=== PATIENT | female | born 1960 | race Caucasian/White ===

== ENCOUNTER 2024-09-05 00:01 | Day surgery (SDC) | payer OTHER, SELFPAY ==
[2024-08-27 14:47] VITALS: BMI 27.9
--- NOTE | 2024-08-27 14:48 | PC.NURSE ---
Report to the Outpatient Waiting Room, entrance under the green pavilion located off [facility], at time _0600_ on date _[id number]_. Planned Procedure Time: _0730_.? Time changes happen often and if your time is changed the preop area will call you the afternoon before. - You and your visitor will be asked to self-screen and do not enter if you have any COVID symptoms. Please call surgeon if you need to reschedule. - A mask is optional within the hospital at this time. Patients may have clear liquids (water, carbonated beverages, clear teas, apple juice) until 3 hours prior to surgery with a maximum of 20 ounces. - No food from midnight until time of surgery and no smoking, or chewing tobacco (or any form of nicotine). No chewing gum, candy or mints. Take only the following medications with a SIP of water on the morning of surgery: ___None____ DO NOT STOP ANY OF YOUR OTHER PRESCRIPTION MEDICATIONS PRIOR TO SURGERY EXCEPT THE FOLLOWING Hold all vitamins and supplements for 3 days per anesthesiologist. Medications to discontinue per physician ___None Date to take last dose Please no make-up, nail maltese, hairspray, perfume, deodorant, or body powder the day of surgery.? No jewelry (including any body piercings) or valuables the day of surgery, leave them at home.? Please take a shower or bath the night before, or the morning of, surgery with an antibacterial soap.? Wear comfortable, loose fitting clothing.? - Jewelry must be removed prior to entering the operating room.? Rings and piercings that are not removed may be cut off. - The hospital will not accept responsibility for valuables.? - Please leave all valuables, including medications, at home the day of surgery. If you are going home after surgery, a licensed short haul driver must drive you home.? - NO public transportation without another adult if you receive anesthesia. - We recommend that an adult stay with you for 24 hours following discharge. - We also recommend that you do not drive, make important decision, drink alcoholic beverages, or take any drugs that were not prescribed by your health care provider for at least 24 hours after your discharge time. Follow any additional instructions given to you from your surgeon. Telephone instructions given to __Shalonda___and asked if any additional questions and then verbalized understanding. Patient advised to call surgeon office or pre surgery nurse liaison [phone] if any additional questions.
--- NOTE | 2024-08-30 17:26 | PM.IMHP ---
H&P: HPI History of Present Illness Date/Time: 08/30/24 17:26 Chief Complaint: UUI Narrative: chronic urge incontinence. Successful trial of SNS Review of Systems Review of Systems: All systems reviewed & are unremarkable except as noted in HPI and below PMFSH Social History Social History Smoking status: Never smoker Alcohol intake: current Drinks per week: 3 Living arrangements: with family Spiritual care concerns: No Meds Home Medications and Allergies Home Medications ?Medication ?Instructions ?Recorded ?Confirmed ?Type estradiol 0.05 mg/24 hr weekly 1 patch topical WEEKLY 08/27/24 08/27/24 History transdermal patch vibegron 75 mg tablet (Gemtesa) 75 mg PO DAILY 08/27/24 08/27/24 History Allergies Allergy/AdvReac Type Severity Reaction Status Date / Time adhesive tape Allergy Mild Rash Verified 08/27/24 14:37 Penicillins Allergy Unknown Unknown Verified 08/27/24 14:36 Exam Narrative: NAD A+O x3 normal breathing Assessment and Plan Assessment and plan (1) Urge incontinence: Code(s): N39.41 - Urge incontinence Status: Acute Assessment and Plan: InterStim implant
--- NOTE | ~2024-09-05 | XR_ITS ---
XR fluoroscopy no charge Indication: Transsacral neurostimulator implant TECHNIQUE: Fluoroscopy used during Transsacral neurostimulator implant performed by [Yohan segundo MD] on 09/05/2024. 31 seconds of fluoroscopy with 2 fluoroscopic images captured. FINDINGS: Correlate with procedure note. IMPRESSION: Fluoroscopy used during Transsacral neurostimulator implant. Reviewed, dictated and finalized at location B. 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
--- OUTSIDE RECORDS SUMMARY | 2024-09-05 00:05 | XMS_ITS | Encounter Summary ---
Author Organization [facility] Address [address] [place] [address] Care Team Providers Care General Car Yard Supervisor Name Role Phone Unavailable Primary Care Provider Unavailabl e Encounter Details Date Type Department Care Team (Late st Contact Info) Description 05/25/2020 Lab Requisition [facility] DermPath Lab [address] [place] [phone] Galina Nicole MD [address] [facility] [address] [place] [address] Social History Tobacco Use Types Packs/Day Years Used Date Smoking Tobacco: Never Assessed Sex and Gender Information Value Date Recorded Sex Assigned at Not on file Gender Identity Not on file Sexual Orientation Not on file documented as of this encounter Plan of Treatment Not on file documented as of this encounter Procedures Procedure Name Priority Date/Time Associated Diagnosis Comments DERMATOPATHOLOGY Routine 05/24/2020 12:0 0 AM BLADE BENDER FURNACE TENDER documented in this encounter Results * DERMATOPATHOLOGY (05/24/2020 12:00 AM BLADE BENDER FURNACE TENDER) Case Report Dermatopathology Report Case: [id number] Authorizing Provider: Galina Nicole MD Collected: 05/24/2020 12:00 AM Ordering Location: [facility] DermPath Lab Received: 05/25/2020 10:17 AM Pathologist: Mesha Morales MD Specimen: Skin, right thigh 0 12:34 PM BLADE BENDER FURNACE TENDER DERMATOPATHOLOGY LABORATORY Final Diagnosis Specimen A. SKIN, right thigh: BASAL CELL CARCINOMA, SUPERFICIAL MULTIFOCAL (C44.712) 0 12:34 PM BLADE BENDER FURNACE TENDER DERMATOPATHOLOGY LABORATORY Clinical History [place] brown papule R/O ISK, BCC, MM. 0 12:34 PM BLADE BENDER FURNACE TENDER DERMATOPATHOLOGY LABORATORY Gross Description Specimen A: Received is one formalin filled container labeled with the patient's name and designated right thigh. The specimen consists of a shave measuring [id number]. Jar 0. 0 12:34 PM [facility] DERMATOPATHOLOGY LABORATORY Microscopic Description Specimen A. SKIN, right thigh: Attached to the undersurface of the epidermis, there are small aggregates of basaloid cells with a high nuclear to cytoplasmic ratio and peripheral palisading. 0 12:34 PM [facility] DERMATOPATHOLOGY LABORATORY Disclaimer An external and internal positive and negative controls are appropriate for the histochemical, immunohistochemical and immunofluorescence stain(s) in this case (if any), except where stated explicitly. The performance characteristics of the stain(s) cited in this report were developed and its performance characteristic determined by the Dermatopathology Laboratory at [facility], directed by Dr. Myriam Rodriguez. These tests need not be, and therefore are not, approved by the [place] Food and Drug Administration. The tests are used for clinical purposes. Billing Codes Specimen Charges Stain Charges 00572 1 0 12:34 PM [facility] DERMATOPATHOLOGY LABORATORY Embedded Images 0 12:34 PM [facility] DERMATOPATHOLOGY LABORATORY Pathology/Cytolog y TISSUE SPECIMEN FROM SKIN / Unknown 05/24/2020 05/25/2020 10:17 AM BLADE BENDER FURNACE TENDER Galina Nicole MD LAB - PATHOLOGY/CYTO LOGY ORDERABLES DERMATOPATHOLOGY LABORATORY [facility] - Department of Dermatology [address], [address] [phone] documented in this encounter Visit Diagnoses Not on filedocumented in this encounter
--- OUTSIDE RECORDS SUMMARY | 2024-09-05 00:05 | XMS_ITS | Clinical Summary ---
Author Organization [facility] Address [address] [place] [address] Phone Care Team Providers Care Psychiatric Technician Assistant Name Role Phone Tan Potter MD Primary Care Provider Allergies Active Allergy Reactions Criticality Noted Date Comments Lemon Swelling Low 09/19/2013 Penicillins Rash Low 09/18/2013 Medications AMITRIPTYLINE HCL (AMITRIPTYLINE ORAL) Active MULTIVITAMIN/IRON /FOLIC ACID (MULTI-BIB ORAL) Ac tive ESTRADIOL TRANSDERMAL PATCH TRANSDERMAL Active NAPROXEN ORAL Active DESOXIMETASONE (TOPICORT TOPICAL) Active ASCORBIC ACID (VITAMIN C ORAL) Act roderick MULTIVITAMIN WITH MINERALS (HAIR,SKIN & NAILS ORAL) Take by mouth. Active escitalopram (LEXAPRO) 20 mg tablet 09/19/2013 Active BOOSTRIX TDAP 2.5-8-5 Lf-mcg-Lf/0.5mL Syringe 09/06/2013 Active Active Problems No known active problems Family History Medical History Relation Name Comments Cancer Brother brain Cancer Father lung Diabetes Mother Heart Disease Mother Hypertension Mother Stroke Mother Relation Name Status Comments Brother Father Mother Social History Tobacco Use Types Packs/Day Years Used Date Smoking Tobacco: Never Alcohol Use Standard Drinks/Week Comments Yes 0 (1 standard drink = 0.6 oz pur e alcohol) social Comments No Sex and Gender Information Value Date Recorded Sex Assigned at Not on file Legal Sex Female 3:05 AM ELECTRONIC TEST 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 Gender Identity Not on file Sexual Orientation Not on file 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 Not on file Not on file Not on file Last Filed Vital Signs Vital Sign Reading Time Taken Comments Blood Pressure 128/70 10/08/2013 10:28 AM CDT Pulse - - Temperature - - Respiratory Rate - - Oxygen Saturation - - Inhaled Oxygen Concentration - - Weight 80.7 kg (178 lb) 10/08/2013 10:28 AM CDT Height 175.3 cm (5' 9 ) 10/08/2013 10:28 AM CDT Body Mass Index 26.29 10/08/2013 10:28 AM CDT Plan of Treatment Health Maintenance Due Date Last Done Comments DTAP/TDAP/TD VACCINES (1 - Tdap) 1981 FIT-DNA Q 3 years 09/24/2007 FIT/FOBT Q 1 year 09/24/2007 Flex Sig/CT Colonography Q 5 years 09/24/2007 OSTEOPOROSIS SCREENING 07/16/2009 5 (Previously completed) COLORECTAL SCREENING 09/20/2009 09/21/1999 (Previously completed) Colorectal Cancer Screening 09/20/2009 ZOSTER VACCINE (1 of 2) 2012 BREAST CANCER SCREENING 08/13/2014 08/13/19 14 (Previously completed), 06/05/2005 (Previously completed) CERVICAL CANCER SCREENING 08/13/20162013 (Previously completed), 07/16/2002 (Previously completed) INFLUENZA VACCINE (#1) 2024 RSV VACCINE (60+ or ) (1 - 1-dose 75+ series) 2037 Insurance Plink Search O OPEN ACCESS Care Teams Psychiatric Technician Assistant Relationship Specialty Start Date End Date Tan Potter MD [address] [phone] PCP - General Family Practice 09/19/13
--- OUTSIDE RECORDS SUMMARY | 2024-09-05 00:05 | XMS_ITS | Encounter Summary ---
Author Organization [facility] Address [address] [facility] [address] Care Team Providers Care Wireless Internet Installer Name Role Phone Unavailable Primary Care Provider Unavailabl e Encounter Details Date Type Department Care Team (Late st Contact Info) Description 05/16/2023 Lab Requisition [facility] - DermPath Lab [address] [facility] [place] [address] Galina Nicole MD [address] [facility] [address] [place] [address] Social History Tobacco Use Types Packs/Day Years Used Date Smoking Tobacco: Never Assessed Sex and Gender Information Value Date Recorded Sex Assigned at Not on file Gender Identity Not on file Sexual Orientation Not on file documented as of this encounter Plan of Treatment Not on file documented as of this encounter Procedures Procedure Name Priority Date/Time Associated Diagnosis Comments DERMATOPATHOLOGY Routine 05/16/2023 3:25 PM CDT documented in this encounter Results * DERMATOPATHOLOGY (05/16/2023 3:25 PM CDT) Case Report Dermatopathology Report Case: [id number] Authorizing Provider: Galina Nicole MD Collected: 05/16/2023 03:25 PM Ordering Location: [facility] DermPath Lab Received: 05/17/2023 12:27 PM Pathologist: Magi Rodriguez MD Specimen: Skin, right upper arm 3:57 PM CDT DERMATOPATHOLOGY LABORATORY Final Diagnosis Specimen A. SKIN, right upper arm: ACTINIC KERATOSIS, LICHENOID (L57.0) 3:57 PM CDT DERMATOPATHOLOGY LABORATORY Clinical History R/O NMSC; [place]ox Crusted Papule 3:57 PM CDT DERMATOPATHOLOGY LABORATORY Gross Description Specimen A: Received is one formalin filled container labeled with the patient's name and designated right upper arm. The specimen consists of a shave biopsy measuring 6x6x1 mm. Jar 0. 3:57 PM CDT DERMATOPATHOLOGY LABORATORY Microscopic Description Specimen A. SKIN, right upper arm: There is focal parakeratosis. The lower half of the epidermis shows disorderly maturation of keratinocytes with nuclear pleomorphism. The dermis shows a band-like, chronic inflammatory infiltrate with occasional apoptotic keratinocytes and some basal vacuolar alteration. 3:57 PM CDT DERMATOPATHOLOGY LABORATORY Disclaimer An external and internal positive and negative controls are appropriate for the histochemical, immunohistochemical and immunofluorescence stain(s) in this case (if any), except where stated explicitly. The performance characteristics of the stain(s) cited in this report were developed and its performance characteristic determined by the Dermatopathology Laboratory at [facility], directed by Dr. Myriam Rodriguez. These tests need not be, and therefore are not, approved by the [place] Food and Drug Administration. The tests are used for clinical purposes. Billing Codes Specimen Charges Stain Charges 47803 1 3 3:57 PM CDT DERMATOPATHOLOGY LABORATORY Embedded Images 3 3:57 PM CDT DERMATOPATHOLOGY LABORATORY Pathology/Cytolo gy TISSUE SPECIMEN FROM SKIN / Unknown 05/16/2023 3:25 PM CDT 05/17/2023 12:27 PM CDT Galina Nicole MD LAB - PATHOLOGY/CYTO LOGY ORDERABLES DERMATOPATHOLOGY LABORATORY [facility] - Department of Dermatology [address], [address] [phone] documented in this encounter Visit Diagnoses Not on filedocumented in this encounter
--- OUTSIDE RECORDS SUMMARY | 2024-09-05 00:05 | XMS_ITS | Clinical Summary ---
Author Organization [facility] Address [address] [place] [address] Care Team Providers Care Waste Cotton Cleaner Name Role Phone Unavailable Primary Care Provider Unavailabl e Source Comments [facility],non-owned Affiliates and Associated Physician Practices is amultiple site organization consisting of ambulatory clinics and hospital sitesin [place], [place], [place] and [place]. This disclosure is being madepursuant to the Care Everywhere program and may not contain all information available regarding this patient. Last updated 18.[facility] Social History Tobacco Use Types Packs/Day Years Used Date Smoking Tobacco: Never Assessed Sex and Gender Information Value Date Recorded Sex Assigned at Not on file Gender Identity Not on file Sexual Orientation Not on file Plan of Treatment Health Maintenance Due Date Last Done Comments COLOGUARD (AGES 45-75) - COL ON CA SCREENING 1962 COLON MONITORING 1962 COLONOSCOPY - COLON CA SCREENING 1962 CT COLONOGRAPHY - COLON CA SCREENING 1962 Colorectal Cancer Screening 1962 FIT - COLON CA SCREENING 1962 FLEX SIG - COLON CA SCREENING 1962 LIPID TESTING 1962 MAMMOGRAM 1962 PAP SMEAR 1962 HIV SCREENING 1977 HEPATITIS C SCREENING 09/18/1980 DTAP/TDAP/TD VACCINES (1 - Tdap) 1981 PNEUMOCOCCAL VACCINE 50+ (1 of 1 - PCV) 2012 ZOSTER VACCINE (1 of 2) 2012 COVID-19 VACCINE ( - 2023-2 5 season) 2024 INFLUENZA VACCINE (#1) 2024 DEPRESSION SCREENING 07/16/2024 Respiratory Syncytial Virus (RSV) Vaccine Pt: or over 60 yrs (1 - 1-dose 75+ series) 2037 HEPATITIS B VACCINE Aged Out No longe r eligible based on patient's age to complete this topic HIB VACCINE Aged Out No longer eligi ble based on patient's age to complete this topic HPV VACCINE Aged Out No longer eligi ble based on patient's age to complete this topic MENINGOCOCCAL (Group B) VACCINE Aged Out No longer eligible based on patient's age to complete this topic MENINGOCOCCAL VACCINE Aged Out No laxmi ilana eligible based on patient's age to complete this topic PNEUMOCOCCAL VACCINE Aged Out No long er eligible based on patient's age to complete this topic
--- OUTSIDE RECORDS SUMMARY | 2024-09-05 00:05 | XMS_ITS | Patient Health Summary ---
Author Organization [facility] Address [address] [facility] [place] [address] Care Team Providers Care Grain Weigher Name Role Phone Unavailable Primary Care Provider Unavailabl e Note from [facility],non-owned Affiliates and Associated Physician Practices is amultiple site organization consisting of ambulatory clinics and hospital sitesin [place], [place], [place] and [place]. This disclosure is being madepursuant to the Care Everywhere program and may not contain all information available regarding this patient. Last updated 18.[facility] Social History Tobacco Use Types Packs/Day Years Used Date Smoking Tobacco: Never Assessed Sex and Gender Information Value Date Recorded Sex Assigned at Not on file Gender Identity Not on file Sexual Orientation Not on file Procedures * DERMATOPATHOLOGY(Performed 12/05/2023) * DERMATOPATHOLOGY(Performed 05/16/2023) * DERMATOPATHOLOGY(Performed 12/04/2022) * DERMATOPATHOLOGY(Performed 03/29/2022) * DERMATOPATHOLOGY(Performed 08/04/2021) * DERMATOPATHOLOGY(Performed 05/25/2021) * DERMATOPATHOLOGY(Performed 07/05/2020) * DERMATOPATHOLOGY(Performed 05/24/2020) Results * DERMATOPATHOLOGY (12/05/2023 3:03 PM CDT) Only the most recent of8 resultswithin the time period is included. Case Report Dermatopathology Report Case: [id number] Authorizing Provider: Galina Nicole MD Collected: 12/05/2023 03:03 PM Ordering Location: [facility] - Received: 12/06/2023 03:52 PM DermPath Lab Pathologist: Magi Rodriguez MD Specimen: Skin, left hip 2:56 PM CDT DERMATOPATHOLOGY LABORATORY Final Diagnosis Specimen A. 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 4 2:56 PM CDT DERMATOPATHOLOGY LABORATORY Gross Description Specimen A: Received is one formalin filled container labeled with the patient's name and designated left hip. The specimen consists of a shave biopsy measuring 8x7x2 mm. Jar 0. 2:56 PM CDT DERMATOPATHOLOGY LABORATORY Microscopic Description Specimen A. SKIN, left hip: In the dermis, there are dilated vascular spaces surrounded by widely spaced endothelial cells. Within the vessels lumens there is papillary endothelial hyperplasia. 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 This is recognized as a benign and reactive proliferation of endothelial cells with papillary formations (see provided reference below). Reference: Rodrigo QS, Meka K, Chavez A, Thor NS. Intravascular papillary endothelial hyperplasia: An unusual histopathological entity. [employer] [facility] [employer] Journal. 2015;6(4):277-279. 2:56 PM CDT DERMATOPATHOLOGY LABORATORY Disclaimer An external and internal positive and negative controls are appropriate for the histochemical, immunohistochemical and immunofluorescence stain(s) in this case (if any), except where stated explicitly. The performance characteristics of the stain(s) cited in this report were developed and its performance characteristic determined by the Dermatopathology Laboratory at [facility], directed by Dr. Myriam Rodriguez. These tests need not be, and therefore are not, approved by the [place] Food and Drug Administration. The tests are used for clinical purposes. Billing Codes Specimen Charges Stain Charges 35278 1 4 2:56 PM CDT DERMATOPATHOLOGY LABORATORY Embedded Images 2:56 PM CDT DERMATOPATHOLOGY LABORATORY Pathology/Cytolo gy TISSUE SPECIMEN FROM SKIN / Unknown 12/05/2023 3:03 PM CDT 12/06/2023 3:52 PM CDT Galina Nicole MD LAB - PATHOLOGY/CYTO LOGY ORDERABLES DERMATOPATHOLOGY LABORATORY [facility] - Department of Dermatology [facility] [address] [facility] [place] [address], [facility] [phone]
--- OUTSIDE RECORDS SUMMARY | 2024-09-05 00:05 | XMS_ITS | Encounter Summary ---
Author Organization [facility] Address [address] [place] [address] Care Team Providers Care Cobbler Upper Name Role Phone Rafaela Gandara [facility] Primary Care Provider + Encounter Details Date Type Department Care Team (Late st Contact Info) Description 05/28/2024 Hithru Message [facility] [address] [place] [address] Rafaela Gandara, [facility] [address] [facility], [address] [place] [address] Diclofenac Sod Ec Tablets Social History Tobacco Use Types Packs/Day Years Used Date Smoking Tobacco: Never Passive Smoke Exposure: Never Smokeless Tobacco: Never Alcohol Use Standard Drinks/Week Comments Yes 2 (1 standard drink = 0.6 oz pur e alcohol) Humiliation, Afraid, Rape, and Kick questionnair e Answer Date Recorded Within the last year, have y ou been afraid of your partner or ex-partner? No 02/13/2023 Within the last year, have y ou been humiliated or emotionally abused in other ways by your partner or ex-partner? No Within the last year, have y ou been kicked, hit, slapped, or otherwise physically hurt by your partner or ex-partner? No 02/13/2023 Within the last year, have y ou been raped or forced to have any kind of sexual activity by your partner or ex-partner? No 02/13/2023 AUDIT-C Answer Date Recorded Frequency of Alcohol Consumption Never 08/18/2019 Average Number of Drinks Not on file 020 Frequency of Binge Drinking Not on file 09/2019 Overall Financial Resource Strain (CARDIA) Answe r Date Recorded How hard is it for you to pa y for the very basics like food, housing, medical care, and heating? Not hard at all 02/13/2023 PHQ-2 Answer Date Recorded Patient Health Questionnaire-2 Score 0 03/25/2024 Hunger Vital Sign Answer Date Recorded Within the past 12 months, y ou worried that your food would run out before you got the money to buy more. Never true 02/14/20 23 Within the past 12 months, t he food you bought just didn't last and you didn't have money to get more. Never true 02/13/2023 PRAPARE - Transportation Answer Date Re corded In the past 12 months, has l ack of transportation kept you from medical appointments or from getting medications? No 07/2022 In the past 12 months, has l ack of transportation kept you from meetings, work, or from getting things needed for daily living? No 02/13/2023 Housing Stability Vital Sign Answer Alexy e Recorded In the last 12 months, was t here a time when you were not able to pay the mortgage or rent on time? No 02/13/2023 In the last 12 months, how many places have you lived? 1 02/13/2023 In the last 12 months, was t here a time when you did not have a steady place to sleep or slept in a detention (including now)? No 02/13/2023 Comments No Sex and Gender Information Value Date Recorded Sex Assigned at Not on file Legal Sex Female 7:44 PM CDT Gender Identity Not on file Sexual Orientation Not on file Travel History Travel Start Travel End [place] 08/07/2024 08/11/2024 documented as of this encounter Functional Status * Are you deaf or do you have serious difficulty hearing Answer Date of Assessment Author Status No 02/13/2023 4:33 PM CDT Lanie Donis RN Active * Are you blind or do you have serious difficulty seeing, even when wearing glasses? Answer Date of Assessment Author Status No 02/13/2023 4:33 PM Lanie Bird RN Active * Do you have serious difficulty walking or climbing stairs? Answer Date of Assessment Author Status No 02/13/2023 3:53 PM Lanie Bird RN Active * Do you have difficulty dressing or bathing? Answer Date of Assessment Author Status No 02/13/2023 3:53 PM Lanie Bird RN Active * Because of a physical, mental, or emotional condition, do you have difficulty doing errands alone such as visiting a doctor's office or shopping? Answer Date of Assessment Author Status No 02/13/2023 3:53 PM Lanie Bird RN Active documented as of this encounter Mental Status * Because of a physical, mental, or emotional condition, do you have serious difficulty concentrating, remembering, or making decisions? Answer Entry Date Author Status No 02/13/2023 3:53 PM Lanie Bird RN Active documented in this encounter Plan of Treatment Upcoming Encounters Date Type Department Care Team (Late st Contact Info) Description 09/15/2024 3:30 PM COMPLEX CARE NURSE PRACTITIONER Office Visit [facility] Audiology [address] [place] [address] Fidelia Tate AUD [address] [place] [address] documented as of this encounter Visit Diagnoses Not on filedocumented in this encounter Care Teams Cobbler Upper Relationship Specialty Start Date End Date Rafaela Gandara, IN SERVICE EDUCATOR- [address] [facility], [address] [place] [address] PCP - General NURSE PRACTITIONER 12/30/19 documented as of this encounter
--- OUTSIDE RECORDS SUMMARY | 2024-09-05 00:05 | XMS_ITS | Clinical Summary ---
Author Organization [facility] Address [address] [place] [address] Care Team Providers Care Sales Operations Consultant Name Role Phone Pierre Gandara [facility] Primary Care Provider + Allergies Active Allergy Reactions Criticality Noted Date Comments Lemon Oil Swelling 09/19/2013 Penicillins Rash Low 09/04/2011 Medications * This document contains information received from the source organization and may not represent a complete record from that organization. triamcinolone 0.1 % cream Apply topically 2 (two) times daily as needed (rash on hands). 2 Active GEMTESA 75 MG tablet 4 Active cetirizine (ZYRTEC) 5 MG tablet Take 1 tablet (5 mg total) by mouth daily. Active estradiol (CLIMARA) 0.05 MG/24HRIndicati ons:Menopause Place 1 patch (0.05 mg total) onto the skin once a week. 4 patch 4 Active estradiol (CLIMARA) 0.05 MG/24HRIndicati ons:Menopause Place 1 patch (0.05 mg total) onto the skin once a week. 12 patch 3 4 Active diclofenac EC (VOLTAREN) 50 MG tabletIndicatio ns:Labral tear of shoulder, left, initial encounter Take 1 tablet (50 mg total) by mouth 2 (two) times daily. 60 tablet 1 4 Active Active Problems Problem Noted Date Diagnosed Date Diverticulitis of intestine with abscess 023 Bilateral primary osteoarthritis of knee 023 Assessment & Plan (01/26/2023 4:55 PM CDT): 1. 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 2. Plantar fasciitis, right 3. Overweight. At this time, we went over the risks, benefits, and alternatives. We will try Meloxicam. Begin formal physical therapy. If there is no significant improvement we will consider steroid injections. Follow up for repeat evaluation in 6 weeks. Sigmoid diverticulosis 04/02/2020 Colitis 04/02/2020 History of diverticulitis 03/16/2020 Overview (03/16/2020): Added automatically from request for surgery [id number] Diverticulitis 02/10/2020 Resolved Problems Problem Noted Date Diagnosed Date Resolved Date Screening for colon cancer 06/01/2023 1 08/04/2022 Screening for colon cancer 06/01/2023 1 08/26/2022 Screening for colon cancer 06/01/2023 1 09/09/2022 Screening for colon cancer 06/01/2023 0 08/20/2023 Screening for colon cancer 06/01/2023 0 09/03/2023 Screening for colon cancer 06/01/2023 0 09/10/2023 Screening for colon cancer 06/01/2023 0 09/17/2023 Encounters Date Type Department Care Team Description 09/01/2024 4:00 PM ABSTRACT SEARCHER Office Visit [facility] Audiology [address] [place] [address] Fidelia Tate AUD Hearing Aid Fit 09/01/2024 Travel 08/26/2024 2:30 PM ABSTRACT SEARCHER Office Visit [facility] Audiology [address] [place] [address] Fidelia Tate AUD Ziegler, Meghan M, [facility]- Hearing Loss; Hearing Aid Evaluation 08/26/2024 Travel 07/18/2024 1:15 PM ABSTRACT SEARCHER Office Visit [facility] Physical Therapy [address] [place] [address] Pierre Gandara, TRANSPORTATION MANAGER-BC Ana Maria Young, PT Shoulder Pain (8/8 PN + D/C) 07/18/2024 Travel 07/11/2024 3:15 PM ABSTRACT SEARCHER Office Visit [facility] [address] [place] [address] Pierre Gandara, TRANSPORTATION MANAGER-BC Lanie Osborn N, OCCASIONAL BABYSITTER Shoulder Pain (7/8) 07/11/2024 Travel 07/02/2024 3:15 PM ABSTRACT SEARCHER Office Visit [facility] [address] [place] [address] Pierre Gandara, TRANSPORTATION MANAGER-BC Lanie Osborn N, OCCASIONAL BABYSITTER Shoulder Pain (6/8) 07/02/2024 Travel 06/25/2024 3:15 PM ABSTRACT SEARCHER Office Visit [facility] [address] [place] [address] Ana Maria Young, PT Pierre Gandara, TRANSPORTATION MANAGER-BC Shoulder Pain (5/8) 06/25/2024 Travel 06/20/2024 3:15 PM ABSTRACT SEARCHER Office Visit [facility] [address] [place] [address] Ana Maria Young, PT Lanie Osborn N, OCCASIONAL BABYSITTER Ankle/foot Pain (); Shoulder Pain (4/8) 06/20/2024 Travel 06/11/2024 11:15 AM ABSTRACT SEARCHER Office Visit [facility] Physical [facility] [address] [place] [address] Pierre Gandara, TRANSPORTATION MANAGER-BC Ana Maria Young, PT Ankle/foot Pain (); Shoulder Pain (3/8) 06/11/2024 Travel from Last 3 Months Immunizations Name Administration Dates Next Due Flucelvax 6 Months+ (Prefilled Syringe) 04/24/20 BRIAN ([employer]) COVID-19 AD26 VACCINE 0.5 ML IM SUSP 09/30/2020 MODERNA COVID-19 ([employer] SIMONA NARAYAN), MRNA, LNP-S, PF, 50 MCG/ 0.25 ML DOSE 07/29/2021 Tdap (Generic) 09/04/2011 Family History Medical History Relation Comments Cancer Brother Cancer Father Heart Disease Father Hypertension Father Stroke Father Heart Disease Mother Hypertension Mother Stroke Mother Dementia Paternal Grandmother Breast Cancer Sister Cancer Sister breat cancer Relation Status Comments Brother Father Mother Paternal Grandmother Sister Social History Tobacco Use Types Packs/Day Years Used Date Smoking Tobacco: Never Passive Smoke Exposure: Never Smokeless Tobacco: Never Tobacco Cessation:Counseling Given: No Alcohol Use Standard Drinks/Week Comments Yes 2 [...] place to sleep or slept in a intermediate (including now)? No 02/13/2023 Comments No Sex and Gender Information Value Date Recorded Sex Assigned at Not on file Legal Sex Female 7:44 PM CDT Gender Identity Not on file Sexual Orientation Not on file Travel History Travel Start Travel End [place] 08/07/2024 08/11/2024 Last Filed Vital Signs Vital Sign Reading Time Taken Comments Blood Pressure 163/82 03/25/2024 3:22 PM CDT Pulse 54 03/25/2024 2:56 PM CDT Temperature 36.5 C (97.7 F) 03/25/2024 2:56 PM CDT Respiratory Rate 18 03/25/2024 2:56 PM CDT Oxygen Saturation 99% 03/25/2024 2:56 PM CDT Inhaled Oxygen Concentration - - Weight 91.8 kg (202 lb 6.4 oz) 03/25/2024 2:56 P M CDT Height 177.8 cm (5' 10 ) 03/25/2024 2:56 PM CDT Body Mass Index 29.04 03/25/2024 2:56 PM CDT Plan of Treatment Upcoming Encounters Date Type Department Care Team (Late st Contact Info) Description 09/15/2024 3:30 PM ABSTRACT SEARCHER Office Visit [facility] Audiology [address] [place] [address] Fidelia Tate, TIGIST [address] [place] [address] Health Maintenance Due Date Last Done Comments Zoster Vaccines (1 of 2) 2012 DTaP, Tdap and Td Vaccines (2 - Td or Tdap) 09/04/2021 09/04/2011 COVID-19 Vaccine (3 - season) 2024 07/29/2021, 09/30/2020 Influenza Adult (#1) 2024 04/24/2020 PHQ-2 (Physician [facility]) 07/16/2024 03/25/2024 Annual Physical 03/25/2025 03/25/2024 Mammogram Screening 05/16/2026 05/16/2024, 01/23/2022, 01/21/2021, Additional history exists Colorectal Cancer Screening Colonoscopy (10 Years) 09/11/2033 09/11/2023, 02/13/2023, 04/02/2020 RSV Immunization or 60+ Years (1 - 1-dose 75+ series) 2037 Hepatitis C Completed 03/26/2024 Meningococcal B Vaccine Aged Out No l onger eligible based on patient's age to complete this topic Meningococcal Vaccine Aged Out No laxmi ilana eligible based on patient's age to complete this topic Pneumococcal Vaccine: Pediatrics (0 to 5 Years) and At-Risk Patients (6 to 64 Years) Aged Out No longer eligible based on patient's age to complete this topic RSV Immunizations Under 20 Months Aged Out No longer eligible based on patient's age to complete this topic Procedures Procedure Name Priority Date/Time Associated Diagnosis Comments MG SCREENING W RAMSES DENI DIGI Routine 05/16/2024 4:04 PM CDT Encounter for screening mammogram for breast cancer HEPATITIS C ANTIBODY Routine 03/26/2024 6:08 AM CDT Need for hepatitis C screening test from Last 3 Months or Most Recently Relevant to Health Maintenance Results * MG SCREENING W RAMSES DENI DIGI (05/16/2024 4:04 PM CDT) Anatomical Region Laterality Modality Breast Bilateral Mammography 05/16/2024 4:14 PM CDT Impressions 05/16/2024 4:18 PM CDT IMPRESSION: No significant interval change. No mammographic evidence of malignancy. RECOMMENDATION: Routine ScreeningBilateral OVERALL IMAGING ASSESSMENT: ACR BI-RADS 2 - BENIGN FINDING(S). Ordered By: PIERRE GANDARA Interpreted By: Ronni Adorno, 05/16/2024 4:14 PM Narrative 05/16/2024 4:[address] PM CDT [address] [address] EXAMINATION: MG SCREENING W RAMSES DENI DIGI INDICATIONS: Screening TECHNIQUE: Digital full field CC and MLO screening mammography bilaterally to include 3-D Tomosynthesis technique. This study was read with the assistance of a computer-aided detection system. HISTORY: No reported breast complaint. Family history of breast cancer in sister at age 59. No documented personal history of breast cancer or prior breast biopsy. COMPARISON: Multiple prior examinations available for comparison dating back to 05/12/2006, the most recent of 01/23/2022, 01/21/2021, and 12/31/2019. TISSUE DENSITY: The breasts are heterogeneously dense, which may obscure small masses. FINDINGS: Few scattered typically benign round calcifications bilaterally. No suspicious microcalcification or mass. No developing asymmetry or architectural distortion. No axillary adenopathy. Pierre Gandara TRANSPORTATION MANAGER-BC MAMMO Final Re sult * HEPATITIS C ANTIBODY (03/26/2024 6:08 AM CDT) HEPATITIS C AB NON-REACTI VE NON-REACTI VE 03/26/2024 3:03 PM CDT [facility] 03/26/2024 6:08 AM CDT Pierre Gandara TRANSPORTATION MANAGER-BC LABORATORY Final Re sult [facility] [address] [place] [address], [place] [phone] from Last 3 Months or Most Recently Relevant to Health Maintenance Insurance * Guarantor: Shalonda Woodall Account Type Relation to Patient Date of Phone Billing Address Personal/Family Self 1960 [phone] (Work) [address] [place] [address] [employer] OPEN ACCESS [facility] Advance Directives * Full Code (Latest Code Status on File) Date Activated Date Inactivated Comments 02/13/2023 4:04 PM 02/17/2023 2:30 PM * Full Code Date Activated Date Inactivated Comments 02/11/2020 8:11 AM 02/13/2020 4:36 PM Care Teams Sales Operations Consultant Relationship Specialty Start Date End Date Pierre Gandara, TRANSPORTATION MANAGER- [address] [facility], [address] [place] [address] PCP - General NURSE PRACTITIONER 12/30/19
--- OUTSIDE RECORDS SUMMARY | 2024-09-05 00:05 | XMS_ITS | Encounter Summary ---
Author Organization [facility] Address [address] [facility] [place] [address] Care Team Providers Care Branch Customer Service Representative Name Role Phone Unavailable Primary Care Provider Unavailabl e Encounter Details Date Type Department Care Team (Late st Contact Info) Description 12/04/2022 Lab Requisition [facility] - DermPath Lab [address] [facility] [facility] [place] [address] Galina Nicole MD [address] [facility] [address] [place] [address] Social History Tobacco Use Types Packs/Day Years Used Date Smoking Tobacco: Never Assessed Sex and Gender Information Value Date Recorded Sex Assigned at Not on file Gender Identity Not on file Sexual Orientation Not on file documented as of this encounter Plan of Treatment Not on file documented as of this encounter Procedures Procedure Name Priority Date/Time Associated Diagnosis Comments DERMATOPATHOLOGY Routine 12/04/2022 2:44 PM CDT documented in this encounter Results * DERMATOPATHOLOGY (12/04/2022 2:44 PM CDT) Case Report Dermatopathology Report Case: [id number] Authorizing Provider: Galina Nicole MD Collected: 12/04/2022 02:44 PM Ordering Location: [facility] DermPath Lab Received: 12/05/2022 04:36 PM Pathologist: Magi Rodriguez MD Specimen: Skin, left back 3 5:38 PM CDT DERMATOPATHOLOGY LABORATORY Final Diagnosis Specimen A. SKIN, left back: BASAL CELL CARCINOMA, SUPERFICIAL MULTIFOCAL (C44.519) 3 5:38 PM CDT DERMATOPATHOLOGY LABORATORY Clinical History R/O: BCC 3 5:38 PM CDT DERMATOPATHOLOGY LABORATORY Gross Description Specimen A: Received is one formalin filled container labeled with the patient's name and designated left back. The specimen consists of a shave biopsy measuring [id number]. Jar 0. 3 5:38 PM CDT DERMATOPATHOLOGY LABORATORY Microscopic Description Specimen A. SKIN, left back: Attached to the undersurface of the epidermis, there are small aggregates of basaloid cells with a high nuclear to cytoplasmic ratio and peripheral palisading. 3 5:38 PM CDT DERMATOPATHOLOGY LABORATORY Disclaimer An external and internal positive and negative controls are appropriate for the histochemical, immunohistochemical and immunofluorescence stain(s) in this case (if any), except where stated explicitly. The performance characteristics of the stain(s) cited in this report were developed and its performance characteristic determined by the Dermatopathology Laboratory at [facility], directed by Dr. Myriam Rodriguez. These tests need not be, and therefore are not, approved by the [place] Food and Drug Administration. The tests are used for clinical purposes. Billing Codes Specimen Charges Stain Charges 08913 1 3 5:38 PM CDT DERMATOPATHOLOGY LABORATORY Embedded Images 3 5:38 PM CDT DERMATOPATHOLOGY LABORATORY Pathology/Cytolo gy TISSUE SPECIMEN FROM SKIN / Unknown 12/04/2022 2:44 PM CDT 12/05/2022 4:36 PM CDT Galina Nicole MD LAB - PATHOLOGY/CYTO LOGY ORDERABLES DERMATOPATHOLOGY LABORATORY [facility] - Department of Dermatology [address], [address] [phone] documented in this encounter Visit Diagnoses Not on filedocumented in this encounter
--- OUTSIDE RECORDS SUMMARY | 2024-09-05 00:05 | XMS_ITS | Encounter Summary ---
Author Organization [facility] Address [address] [place] [address] Care Team Providers Care Hip Hop Performers Name Role Phone None, Provider Primary Care Provider Rafaela Urena [facility] Primary Care Provider + Encounter Details Date Type Department Care Team (Late st Contact Info) Description 10/29/2010 Abstract [facility] Conversion Md, Generic Conversion, Social History Tobacco Use Types Packs/Day Years Used Date Smoking Tobacco: Never Assessed Comments Unknown Sex and Gender Information Value Date Recorded Sex Assigned at Not on file Legal Sex Female 7:44 PM CDT Gender Identity Not on file Sexual Orientation Not on file Travel History Travel Start Travel End [place] 08/07/2024 08/11/2024 documented as of this encounter Plan of Treatment Upcoming Encounters Date Type Department Care Team (Late st Contact Info) Description 09/15/2024 3:30 PM EMPLOYMENT PROGRAM REPRESENTATIVE Office Visit [facility] Audiology [address] [place] [address] Fidelia Tate, AUD [address] [place] [address] documented as of this encounter Visit Diagnoses Not on filedocumented in this encounter Additional Health Concerns Infection Onset Date Last Indicated Resolved Time COVID-19 Rule Out 03/30/2020 03/30/2020 04/01/2020 8:20 PM CDT documented as of this encounter Care Teams Hip Hop Performers Relationship Specialty Start Date End Date None, Provider, PCP - General 08/18/19 12/29/19 Rafaela Gandara, [facility]- [address] [facility], [address] [place] [address] PCP - General NURSE PRACTITIONER 12/30/19 documented as of this encounter
--- OUTSIDE RECORDS SUMMARY | 2024-09-05 00:05 | XMS_ITS | Referral Summary ---
Author Organization [facility] Address [address] [facility] [place] [address] Care Team Providers Care Slab Puller Name Role Phone Unavailable Primary Care Provider Unavailabl e Source Comments [facility],non-owned Affiliates and Associated Physician Practices is amultiple site organization consisting of ambulatory clinics and hospital sitesin [place], [place], [place] and [place]. This disclosure is being madepursuant to the Care Everywhere program and may not contain all information available regarding this patient. Last updated 18.[facility] [employer] Social History Tobacco Use Types Packs/Day Years Used Date Smoking Tobacco: Never Assessed Sex and Gender Information Value Date Recorded Sex Assigned at Not on file Gender Identity Not on file Sexual Orientation Not on file Plan of Treatment Not on file
--- OUTSIDE RECORDS SUMMARY | 2024-09-05 00:05 | XMS_ITS | Encounter Summary ---
Author Organization [facility] Address [address] [facility] [place] [address] Care Team Providers Care Oracle Financial Application Developer Name Role Phone Unavailable Primary Care Provider Unavailabl e Encounter Details Date Type Department Care Team (Late st Contact Info) Description 07/06/2020 Lab Requisition [facility] DermPath Lab [address] [place] [phone] Aaliyah Mark MD [address] [place] [address] Social History Tobacco Use Types Packs/Day Years Used Date Smoking Tobacco: Never Assessed Sex and Gender Information Value Date Recorded Sex Assigned at Not on file Gender Identity Not on file Sexual Orientation Not on file documented as of this encounter Plan of Treatment Not on file documented as of this encounter Procedures Procedure Name Priority Date/Time Associated Diagnosis Comments DERMATOPATHOLOGY Routine 07/05/2020 3:33 AM STRATEGIC SOLUTIONS CONSULTANT documented in this encounter Results * DERMATOPATHOLOGY (07/05/2020 3:33 AM STRATEGIC SOLUTIONS CONSULTANT) Case Report Dermatopathology Report Case: [id number] Authorizing Provider: Aaliyah Mark MD Collected: 07/05/2020 03:33 AM Ordering Location: [facility] Received: 07/06/2020 11:49 AM Pathologist: Mesha Morales MD Specimen: Skin, right thigh 0 1:03 PM STRATEGIC SOLUTIONS CONSULTANT DERMATOPATHOLOGY LABORATORY Final Diagnosis Specimen A. SKIN, right thigh: BASAL CELL CARCINOMA (C44.712) NOT PRESENT AT MARGIN DERMAL SCAR (L90.5) 0 1:03 PM STRATEGIC SOLUTIONS CONSULTANT DERMATOPATHOLOGY LABORATORY Clinical History R/O BCC, biopsy proven. 0 1:03 PM [facility] DERMATOPATHOLOGY LABORATORY Gross Description Specimen A: Received is one formalin filled container labeled with the patient's name and designated right thigh. The specimen consists of a non-oriented ellipse of skin measuring [id number]. The epidermal surface consists of a centrally located 12x7mm previous biopsy site. The margin is inked green. The 12 o'clock and 6 o'clock tips are submitted in cassette 1. The remainder of the ellipse is serially sectioned and submitted in cassettes 2-3. Jar 0. 0 1:03 PM [facility] DERMATOPATHOLOGY LABORATORY Microscopic Description Specimen A. SKIN, right thigh: Within the dermis there are aggregates of basaloid cells with a high nuclear to cytoplasmic ratio and peripheral palisading. This lesion is not present at the margin of the specimen. There are fibroblasts and collagen bundles oriented parallel to the skin surface with elongated blood vessels, some of which are oriented perpendicular to the skin surface. 0 1:03 PM [facility] DERMATOPATHOLOGY LABORATORY Disclaimer An external and internal positive and negative controls are appropriate for the histochemical, immunohistochemical and immunofluorescence stain(s) in this case (if any), except where stated explicitly. The performance characteristics of the stain(s) cited in this report were developed and its performance characteristic determined by the Dermatopathology Laboratory at [facility], directed by Dr. Myriam oRdriguez. These tests need not be, and therefore are not, approved by the [place] Food and Drug Administration. The tests are used for clinical purposes. Billing Codes Specimen Charges Stain Charges 48154 1 0 1:03 PM [facility] DERMATOPATHOLOGY LABORATORY Embedded Images 0 1:03 PM [facility] DERMATOPATHOLOGY LABORATORY Pathology/Cytolo gy TISSUE SPECIMEN FROM SKIN / Unknown 07/05/2020 3:33 AM STRATEGIC SOLUTIONS CONSULTANT 07/06/2020 11:49 AM STRATEGIC SOLUTIONS CONSULTANT Aaliyah Mark MD LAB - PATHOLOGY/CYTO LOGY ORDERABLES DERMATOPATHOLOGY LABORATORY [facility] - Department of Dermatology [address], [address] [phone] documented in this encounter Visit Diagnoses Not on filedocumented in this encounter
--- OUTSIDE RECORDS SUMMARY | 2024-09-05 00:05 | XMS_ITS | Encounter Summary ---
Author Organization [facility] Address [address] [place] [address] Care Team Providers Care Studio Technician Name Role Phone Rafaela Gandara [facility] Primary Care Provider + Encounter Details Date Type Department Care Team (Late st Contact Info) Description 05/14/20[address] Storypanda [address] [phone] [place], [facility] Provider Results Social History Tobacco Use Types Packs/Day Years [...] place to sleep or slept in a alf (including now)? No 02/13/2023 Comments No Sex and Gender Information Value Date Recorded Sex Assigned at Not on file Legal Sex Female 7:44 PM CDT Gender Identity Not on file Sexual Orientation Not on file Travel History Travel Start Travel End [place] 08/07/2024 08/11/2024 documented as of this encounter Functional Status * Are you deaf or do you have serious difficulty hearing Answer Date of Assessment Author Status No 02/13/2023 4:33 PM CDT Lanie Dnois RN Active * Are you blind or do you have serious difficulty seeing, even when wearing glasses? Answer Date of Assessment Author Status No 02/13/2023 4:33 PM CDT Lanie Donis RN Active * Do you have serious [...] st Contact Info) Description 09/15/2024 3:30 PM EQUIPMENT INSTALLATION PROFESSIONAL Office Visit [facility] Audiology [address] [place] [address] LeaFidelia, AUD [address] [place] [address] documented as of this encounter Visit Diagnoses Not on filedocumented in this encounter Care Teams Studio Technician Relationship Specialty Start Date End Date Rafaela Gandara, STEAM SHOVEL OPERATING ENGINEER- [address] [facility], [address] [place] [address] PCP - General NURSE PRACTITIONER 12/30/19 documented as of this encounter
--- OUTSIDE RECORDS SUMMARY | 2024-09-05 00:05 | XMS_ITS | Encounter Summary ---
Author Organization [facility] Address [address] [facility] [place] [address] Care Team Providers Care Communications Electrician Supervisor Name Role Phone Unavailable Primary Care Provider Unavailabl e Encounter Details Date Type Department Care Team (Late st Contact Info) Description 12/05/2023 Lab Requisition [facility] - DermPath Lab [address] [facility], [facility] [place] [address] Galina Nicole MD [address] [facility] [address] [place] [address] Social History Tobacco Use Types Packs/Day Years Used Date Smoking Tobacco: Never Assessed Sex and Gender Information Value Date Recorded Sex Assigned at Not on file Gender Identity Not on file Sexual Orientation Not on file documented as of this encounter Plan of Treatment Not on file documented as of this encounter Procedures Procedure Name Priority Date/Time Associated Diagnosis Comments DERMATOPATHOLOGY Routine 12/05/2023 3:03 PM CDT documented in this encounter Results * DERMATOPATHOLOGY (12/05/2023 3:03 PM CDT) Case Report Dermatopathology Report Case: [id number] Authorizing Provider: Galina Nicole MD Collected: 12/05/2023 03:03 PM Ordering Location: [facility] - Received: 12/06/2023 03:52 PM DermPath Lab Pathologist: Magi Rodriguez MD Specimen: Skin, left hip 2:56 PM CDT DERMATOPATHOLOGY LABORATORY Final Diagnosis Specimen A. 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 2:56 PM CDT DERMATOPATHOLOGY LABORATORY Gross Description [...] papillary endothelial hyperplasia: An unusual histopathological entity. Dermatology Online Journal. 2015;6(4):277-279. 2:56 PM CDT DERMATOPATHOLOGY LABORATORY Disclaimer An external and internal positive and negative controls are appropriate for the histochemical, immunohistochemical and immunofluorescence stain(s) in this case (if any), except where stated explicitly. The performance characteristics of the stain(s) cited in this report were developed and its performance characteristic determined by the Dermatopathology Laboratory at [facility], directed by Dr. Myriam Rodriguez. These tests need not be, and therefore are not, approved by the [place] Food and Drug Administration. The tests are used for clinical purposes. Billing Codes Specimen Charges Stain Charges 08352 1 2:56 PM CDT DERMATOPATHOLOGY LABORATORY Embedded Images 2:56 PM CDT DERMATOPATHOLOGY LABORATORY Pathology/Cytolo gy TISSUE SPECIMEN FROM SKIN / Unknown 12/05/2023 3:03 PM CDT 12/06/2023 3:52 PM CDT Galina Nicole MD LAB - PATHOLOGY/CYTO LOGY ORDERABLES DERMATOPATHOLOGY LABORATORY [facility] - Department of Dermatology [address], [address] [phone] documented in this encounter Visit Diagnoses Not on filedocumented in this encounter
--- OUTSIDE RECORDS SUMMARY | 2024-09-05 00:06 | XMS_ITS | Encounter Summary ---
Author Organization [facility] Address 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
--- OUTSIDE RECORDS SUMMARY | 2024-09-05 00:06 | XMS_ITS | Encounter Summary ---
Author Organization [facility] Address 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
--- OUTSIDE RECORDS SUMMARY | 2024-09-05 00:06 | XMS_ITS | Encounter Summary ---
Author Organization [facility] Address [address] [place] [address] Care Team Providers Care Hat Lining Blocker Name Role Phone Rafaela Gandara [facility] Primary Care Provider + Encounter Details Date Type Department Care Team (Late st Contact Info) Description 03/26/2020 Prep for Procedure [facility] [address] [place] [address] [place] [address] [place] [address] Social History Tobacco Use Types Packs/Day Years Used Date Smoking Tobacco: Never Smokeless Tobacco: Never Alcohol Use Standard Drinks/Week Comments Yes 3 (1 standard drink = 0.6 oz pur e alcohol) AUDIT-C Answer Date Recorded Frequency of Alcohol Consumption Never 08/18/2019 Average Number of Drinks Not on file 020 Frequency of Binge Drinking Not on file 09/2019 Comments No Sex and Gender Information Value Date Recorded Sex Assigned at Not on file Legal Sex Female 7:44 PM CDT Gender Identity Not on file Sexual Orientation Not on file Travel History Travel Start Travel End [place] 08/07/2024 08/11/2024 COVID-19 Exposure Response Date Recorded In the last month, have you been in contact with someone who was confirmed or suspected to have Coronavirus / COVID-19? No / Unsure 03/26/2020 2:07 PM CDT documented as of this encounter Functional Status * RETIRED Are you deaf or do you have serious difficulty hearing Answer Date of Assessment Author Status No 02/11/2020 1:36 AM CDT Activ e * RETIRED Are you blind or do you have serious difficulty seeing, even when wearing glasses? Answer Date of Assessment Author Status No 02/11/2020 1:36 AM CDT Activ e * Do you have serious difficulty walking or climbing stairs? Answer Date of Assessment Author Status No 02/11/2020 1:36 AM CDT Ana Maria Oconnor RN Active * Do you have difficulty dressing or bathing? Answer Date of Assessment Author Status No 02/11/2020 1:36 AM CDT Ana Maria Oconnor RN Active * Because of a physical, mental, or emotional condition, do you have difficulty doing errands alone such as visiting a doctor's office or shopping? Answer Date of Assessment Author Status No 02/11/2020 1:36 AM CDT Ana Maria Oconnor RN Active documented as of this encounter Mental Status * Because of a physical, mental, or emotional condition, do you have serious difficulty concentrating, remembering, or making decisions? Answer Entry Date Author Status No 02/11/2020 1:36 AM CDT Ana Maria Oconnor RN Active documented in this encounter Plan of Treatment Upcoming Encounters Date Type Department Care Team (Late st Contact Info) Description 09/15/2024 3:30 PM ENGINEERING INSTRUCTOR Office Visit [facility] Audiology [address] [place] [address] LeaFidelia [facility] [address] [place] [address] documented as of this encounter Results * PRE-SURGICAL/PRE-PROCEDURE CORONAVIRUS (COVID 19) (03/30/2020 3:41 PM CDT) Pathologist [facility] CORONAVIRUS SARS COV 2 PCR (RESP) NOT DETECTED NOT DETECTED 04/01/2020 8:20 PM CDT [facility] Comment: A Not Detected (negative) test result for this test means that SARS- CoV-2 RNA was not present in the specimen above the limit of detection. A negative result does not rule out the possibility of COVID-19 and should not be used as the sole basis for treatment or patient management decisions. If COVID-19 is still suspected, based on exposure history together with other clinical findings, re-testing should be considered in consultation with public health authorities. Laboratory test results should always be considered in the context of clinical observations and epidemiological data in making a final diagnosis and patient management decisions. Please review the Fact Sheets and FDA authorized labeling available for health care providers and patients using the following websites: [email or web address]://[email or web address]/home/Covid-19/HCP/NAAT/fact-sheet2 https://www.[email or web address]/home/Covid-19/Patients/NAAT/ fact-sheet2 This test has been authorized by the FDA under an Emergency Use Authorization (EUA) for use by authorized laboratories. Due to the current public health emergency, [facility] is receiving a high volume of samples from a wide variety of swabs and media for COVID-19 testing. In order to serve patients during this public health crisis, samples from appropriate clinical sources are being tested. Negative test results derived from specimens received in non-commercially manufactured viral collection and transport media, or in media and sample collection kits not yet authorized by FDA for COVID-19 testing should be cautiously evaluated and the patient potentially subjected to extra precautions such as additional clinical monitoring, including collection of an additional specimen. Methodology: Nucleic Acid Amplification Test (NAAT) includes PCR or TMA Additional information about COVID-19 can be found at the [facility] website: [email or web address].Cellcrypt/Covid19. Test performed at [facility] [place] [address] [place] [address] Director: MARGARITA BOOGIE DO,MPH FIRST TEST NO 03/30/2020 3:41 PM CDT [facility] EMPLOYED IN HEALTHCARE NO 03/30/2020 3:41 PM CDT [facility] SYMPTOMATIC DEFINED BY CDC NO 03/30/2020 3:41 PM CDT [facility] DATE OF SYMPTOM ONSET NO 03/30/2020 3:55 PM CDT [facility] HOSPITALIZATION STATUS NO 03/30/2020 3:41 PM CDT [facility] PATIENT IN ICU NO 03/30/2020 3:41 PM CDT [facility] RESIDENT OF CONGREGATE CARE NO 03/30/2020 3:41 PM CDT [facility] NO 03/30/2020 3:55 PM CDT [facility] PATIENT'S RACE WHITE OR 03/30/2020 3:41 PM CDT [facility] ETHNICITY NONHISPANIC 03/30/2020 3:41 PM CDT [facility] SOURCE (QST) NASOPHARYNGEAL SWAB 03/30/2020 3:41 PM CDT [facility] NASOPHARYNGEAL SWAB / Unknown 03/30/2020 3:41 PM CDT Fernando Sanchez MD MICROBIOLOGY - GENERAL ORDERABLES Final Result [facility] [address] [place] [address], [facility] [address] documented in this encounter Visit Diagnoses Diagnosis Pre-op testing- Primary Preoperative examination, unspecified documented in this encounter Additional Health Concerns Infection Onset Date Last Indicated Resolved Time COVID-19 Rule Out 03/30/2020 03/30/2020 04/01/2020 8:20 PM CDT documented as of this encounter Care Teams Hat Lining Blocker Relationship Specialty Start Date End Date Rafaela Gandara, ACCESS LIAISON- [address] [facility], [address] [place] [address] PCP - General NURSE PRACTITIONER 12/30/19 documented as of this encounter
--- OUTSIDE RECORDS SUMMARY | 2024-09-05 00:06 | XMS_ITS | Referral Summary ---
Author Organization [facility] Address [address] [place] [phone] Care Team Providers Care Wheel And Pinion Inspector Name Role Phone Miscellaneous, Not In File Primary Care Provider Unavailable Encounters Date Type Department Care Team Description 06/18/2024 8:06 AM MANAGER SERVICE DESK - 06/18/2024 11:59 PM MANAGER SERVICE DESK Hospital Encounter [facility] [address] [place] [address] Left shoulder pain, unspecified chronicity Discharge Disposition: Discharge to home or self care 06/18/2024 8:15 AM MANAGER SERVICE DESK Office Visit [facility] Orthopaedic Surgery [address] [place] [address] [address] [place] [phone] Annie Collins MD Left shoulder pain, unspecified chronicity (Primary Dx); Adhesive capsulitis of left shoulder from Last 3 Months Allergies Active Allergy Reactions Criticality Noted Date Comments Lemon Swelling Medium 09/19/2013 Penicillins Rash Medium 09/04/2011 Rash Medications escitalopram (LEXAPRO) 20 mg tablet 09/20/19 14 Active estradioL (CLIMARA) 0.05 mg/24 hr APPLY 1 PATCH TRANSDERMALLYONTO THE SKIN ONCE WEEKLY ON MONDAYS Active Gemtesa 75 mg tablet 07/25/19 24 Active Active Problems No known active problems Social History Tobacco Use Types Packs/Day Years Used Date Smoking Tobacco: Never Assessed Comments Unknown Sex and Gender Information Value Date Recorded Sex Assigned at Not on file Legal Sex Female 9:10 PM MANAGER SERVICE DESK Gender Identity Not on file Sexual Orientation Not on file Last Filed Vital Signs Vital Sign Reading Time Taken Comments Blood Pressure 128/69 12/07/2016 5:51 PM CDT Pulse 70 12/07/2016 5:51 PM CDT Temperature 36.4 C (97.6 F) 12/07/2016 5:51 PM CDT Respiratory Rate - - Oxygen Saturation 99% 12/07/2016 5:51 PM CDT Inhaled Oxygen Concentration - - Weight 80.7 kg (178 lb) 12/07/2016 5:51 PM CDT Height 177.8 cm (5' 10 ) 12/07/2016 5:51 PM CDT Body Mass Index 25.54 12/07/2016 5:51 PM CDT Plan of Treatment Not on file Procedures Procedure Name Priority Date/Time Associated Diagnosis Comments AR ARTHROCENTESIS ASPIR&/INJ MAJOR JT/BURSA W/O US Routine 06/18/2024 8:15 AM MANAGER SERVICE DESK Adhesive capsulitis of left shoulder XR SHOULDER LEFT 2 OR MORE VIEWS Schedule Routine, Read Routine (OP Routine) 06/18/2024 8:11 AM MANAGER SERVICE DESK Left shoulder pain, unspecified chronicity from Last 3 Months Results * AR ARTHROCENTESIS ASPIR&/INJ MAJOR JT/BURSA W/O US (06/18/2024 8:15 AM MANAGER SERVICE DESK) Narrative Annie Collins MD - 06/18/2024 8:15 AM MANAGER SERVICE DESK Annie Collins MD 06/19/2024 7:25 PM Large Joint Injection: L subacromial bursa Performed by: Annie Collins MD Authorized by: Annie Collins MD Large Joint Injection/Aspiration: Consent Given by: Patient Timeout: prior to procedure the correct patient, procedure, and site was verified Verbal consent obtained: Yes Supporting Documentation: Indications: Pain Procedure Details: Location: Shoulder Site: L subacromial bursa Prep: patient was prepped using a clean technique Needle Size: 22 G Approach: Lateral Ultrasound guided: No Fluroscopic guidance: No Medications: 4 mL BUPivacaine HCl 0.5 % (5 mg/mL); 4 mL lidocaine 10 mg/mL (1 %); 80 mg triamcinolone 40 mg/mL Patient tolerance: Patient tolerated the procedure with difficulty Risks and benefits of the procedure were reviewed prior to proceeding. This includes the risks of infection, joint swelling, pain, and skin changes. Annie Collins MD IN CLINIC/BEDSIDE ORD ERABLES Final Result * XR Shoulder Left 2 or More Views (06/18/2024 8:11 AM MANAGER SERVICE DESK) Anatomical Region Laterality Modality Upper Extremities, Shoulder Left Comp uted Radiography 06/18/2024 8:15 AM MANAGER SERVICE DESK Impressions 06/18/2024 8:15 AM MANAGER SERVICE DESK 1. Minimal acromioclavicular and glenohumeral osteoarthritis. Electronically signed by: Kenneth Wise D.O. Narrative 06/18/2024 8:15 AM MANAGER SERVICE DESK EXAMINATION: XR SHOULDER LEFT 2 OR MORE VIEWS HISTORY: shoulder pain FINDINGS: No comparison prior exam is available. Minimal acromioclavicular and glenohumeral osteoarthritis. No acute fracture or dislocation. Procedure Note Kenneth Wise, DO - 06/18/2024 EXAMINATION: XR SHOULDER LEFT 2 OR MORE VIEWS HISTORY: shoulder pain FINDINGS: No comparison prior exam is available. Minimal acromioclavicular and glenohumeral osteoarthritis. No acute fracture or dislocation. IMPRESSION: 1. Minimal acromioclavicular and glenohumeral osteoarthritis. Electronically signed by: Kenneth Wise D.O. Annie Collins MD IMG XR PROCEDURES Fin al Result from Last 3 Months Insurance [facility] [id number] [facility] [id number] Care Teams Wheel And Pinion Inspector Relationship Specialty Start Date End Date Miscellaneous, Not In File PCP - General 06/18/24
--- OUTSIDE RECORDS SUMMARY | 2024-09-05 00:06 | XMS_ITS | Encounter Summary ---
Author Organization [facility] Address [address] [place] [address] Care Team Providers Care Vice President Network Name Role Phone Tan Potter MD Primary Care Provider Encounter Details Date Type Department Care Team (Late st Contact Info) Description 03/15/2000 Outpatient Historical HIS MD Naresh MARTINEZ Jorge A, MD [address] [place] [address] [address] [place] [address] Social History Tobacco Use Types Packs/Day Years Used Date Smoking Tobacco: Never Assessed Comments Unknown Sex and Gender Information Value Date Recorded Sex Assigned at Not on file Legal Sex Female 3:05 AM UNHAIRER Gender Identity Not on file Sexual Orientation Not on file documented as of this encounter Plan of Treatment Not on file documented as of this encounter Visit Diagnoses Not on filedocumented in this encounter Care Teams Vice President Network Relationship Specialty Start Date End Date Tan Potter MD [address] [phone] PCP - General Family Practice 09/19/13 documented as of this encounter
--- OUTSIDE RECORDS SUMMARY | 2024-09-05 00:06 | XMS_ITS | Encounter Summary ---
Author Organization [facility] Address 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
--- OUTSIDE RECORDS SUMMARY | 2024-09-05 00:06 | XMS_ITS | Encounter Summary ---
Author Organization [facility] Address 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
--- OUTSIDE RECORDS SUMMARY | 2024-09-05 00:06 | XMS_ITS | Clinical Summary ---
Author Organization [facility] Address [id number] [place] [phone] Care Team Providers Care Halal Butcher Name Role Phone Miscellaneous, Not In File Primary Care Provider Unavailable Allergies Active Allergy Reactions Criticality Noted Date Comments Lemon Swelling Medium 09/19/2013 Penicillins Rash Medium 09/04/2011 Rash Medications escitalopram (LEXAPRO) 20 mg tablet 09/20/19 14 Active estradioL (CLIMARA) 0.05 mg/24 hr APPLY 1 PATCH TRANSDERMALLYONTO THE SKIN ONCE WEEKLY ON MONDAYS Active Gemtesa 75 mg tablet 07/25/19 24 Active Active Problems No known active problems Encounters Date Type Department Care Team Description 06/18/2024 8:15 AM PIPE PULLER Office Visit [facility] Orthopaedic Surgery [address] [place] [address] 2[address] [place] [address] Annie Collins MD Left shoulder pain, unspecified chronicity (Primary Dx); Adhesive capsulitis of left shoulder 06/18/2024 8:06 AM PIPE PULLER - 06/18/2024 11:59 PM PIPE PULLER Hospital Encounter [facility] [address] [place] [address] [id number] Left shoulder pain, unspecified chronicity Discharge Disposition: Discharge to home or self care from Last 3 Months Social History Tobacco Use Types Packs/Day Years Used Date Smoking Tobacco: Never Assessed Comments Unknown Sex and Gender Information Value Date Recorded Sex Assigned at Not on file Legal Sex Female 9:10 PM PIPE PULLER Gender Identity Not on file Sexual Orientation Not on file Obstetrics History Last Filed Vital Signs Vital Sign Reading [...] 12/07/2016 5:51 PM CDT Plan of Treatment Health Maintenance Due Date Last Done Comments Cervical Cancer Screening 1962 Colon Cancer Screening-Colonoscopy 1962 Depression Screening 1962 Hepatitis C Screening 1962 Hepatitis B Screening 1980 Regular Well Visit/Exam 18-64 1980 Zoster Vaccine (1 of 2) 2012 DTaP/Tdap/Td Vaccine (2 - Td or Tdap) 09/04/2021 09/04/2011 Covid-19 Vaccine (3 - season) 2024 07/29/2021, 09/30/2020 Influenza Vaccine (#1) 2024 04/24/2020 Breast Cancer Screening-Mammogram 05/16/2025 05/16/2024, 05/16/2024, 01/23/2022, Additional history exists Pneumococcal vaccine <65 Aged Out No longer eligible based on patient's age to complete this topic Procedures Procedure Name Priority Date/Time Associated Diagnosis Comments OR ARTHROCENTESIS ASPIR&/INJ MAJOR JT/BURSA W/O US Routine 06/18/2024 8:15 AM PIPE PULLER Adhesive capsulitis of left shoulder XR SHOULDER LEFT 2 OR MORE VIEWS Schedule Routine, Read Routine (OP Routine) 06/18/2024 8:11 AM PIPE PULLER Left shoulder pain, unspecified chronicity from Last 3 Months Results * OR ARTHROCENTESIS ASPIR&/INJ MAJOR JT/BURSA W/O US (06/18/2024 8:15 AM PIPE PULLER) Narrative Annie Collins MD - 06/18/2024 8:15 AM PIPE PULLER Annie Collins MD 06/19/2024 7:25 PM Large [...] 2 or More Views (06/18/2024 8:11 AM PIPE PULLER) Anatomical Region Laterality Modality Upper Extremities, Shoulder Left Comp uted Radiography 06/18/2024 8:15 AM PIPE PULLER Impressions 06/18/2024 8:15 AM PIPE PULLER 1. Minimal acromioclavicular and glenohumeral osteoarthritis. Electronically signed by: Kenneth Wise D.O. Narrative 06/18/2024 8:15 AM PIPE PULLER EXAMINATION: XR SHOULDER LEFT 2 OR MORE VIEWS HISTORY: shoulder pain FINDINGS: No comparison prior exam is available. Minimal acromioclavicular and glenohumeral osteoarthritis. No acute fracture or dislocation. Procedure Note Kenneth Wise, - 06/18/2024 EXAMINATION: XR SHOULDER LEFT 2 OR MORE VIEWS HISTORY: shoulder pain FINDINGS: No comparison prior exam is available. Minimal acromioclavicular and glenohumeral osteoarthritis. No acute fracture or dislocation. IMPRESSION: 1. Minimal acromioclavicular and glenohumeral osteoarthritis. Electronically signed by: Kenneth Wise D.O. Annie Collins MD IMG XR PROCEDURES Fin al Result from Last 3 Months Insurance [facility] [id number] [facility] [id number] Care Teams Halal Butcher Relationship Specialty Start Date End Date Miscellaneous, Not In File PCP - General 06/18/24
--- OUTSIDE RECORDS SUMMARY | 2024-09-05 00:06 | XMS_ITS | Encounter Summary ---
Author Organization [facility] Address 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
[2024-09-05 06:18] VITALS: BP 136/75; PULSE 69; RESP 18; TEMP 36.7; O2SAT 100
[2024-09-05] MEDS: LACTATED RINGERS 1,000 ML 30 ML IV CONT (06:25)
--- NOTE | 2024-09-05 06:45 | WPDANESEPPF ---
Anes - Initial Pre Proc Eval Procedure: Operation Date: 09/05/24 07:30 Proposed Procedures p Neurostimulator Implant - Yohan Edwards MD Date/Time: 09/05/24 06:45 Surgeon: Yohan Edwards MD Pre Op Diagnosis: sensory urge incont Patient Data Age: 63 Gender: F Height: 1.8 m Weight: 92.3 kg Last Vital Signs Temp 36.7 C 09/05/24 06:18 Pulse 69 09/05/24 06:18 Resp 18 09/05/24 06:18 BP 136/75 09/05/24 06:18 Pulse Ox 100 09/05/24 06:18 O2 Del Method Room Air 09/05/24 06:18 Allergies Allergy/AdvReac Type Severity Reaction Status Date / Time adhesive tape Allergy Mild Rash Verified 09/05/24 06:17 Penicillins Allergy Unknown Unknown Verified 09/05/24 06:17 Home Medications ?Medication ?Instructions ?Recorded ?Confirmed ?Type estradiol 0.05 mg/24 hr weekly 1 patch topical WEEKLY 08/27/24 09/05/24 History transdermal patch vibegron 75 mg tablet (Gemtesa) 75 mg PO DAILY 08/27/24 08/27/24 History Patient hx anesthesia problems: none Family hx anesthesia problems: none Results Review: All pre-operative results and documents have been reviewed as part of the pre-operative evaluation. [facility] Past Medical History Medical History (Updated 09/05/24 @ 07:01 by Bridger Jackman DO) Diverticulitis Social History Social History Smoking status: Never smoker Alcohol intake: current Drinks per week: 3 Living arrangements: with family Spiritual care concerns: No Anes - Eval Final PreProcedure Day of Procedure 09/05/24 06:45 Patient weight: overweight Heart: regular rate and rhythm Lungs: clear to auscultation Airway: Mallampati scale class II Neurological: alert and oriented Last oral intake: >/= 8 hours ASA classification: II Emergent: no Anesthetic plan: proceed Anesthesia type and monitoring: general GIVS and standard monitoring Results Review: All pre-operative results and documents have been reviewed as part of the pre-operative evaluation. Informed Consent: The patient's anesthetic plan and its attendant risks and benefits were discussed with the patient/family/POA. Questions were solicited and answers provided to the satisfaction of the patient/family/POA.
--- NOTE | 2024-09-05 07:14 | WPDHPUPDATE1 ---
History and Physical Update Update Date/Time: 09/05/24 07:14 History and Physical has been reviewed, including an updated exam of the patient. There are NO changes in the patient's condition. Risks, benefits, and alternatives have been discussed and questions answered. Patient agrees to proceed with procedure.
[2024-09-05] MEDS: ceFAZolin 2 GM/D5W 50 ML 2 GM/50 ML BAG IVPB (07:28)
[2024-09-05] MEDS: BUPIVACAINE/EPINEPHRINE 0.5% 30 ML VIAL INFILTRATE (07:41)
[2024-09-05 08:06] VITALS: BP 116/60; PULSE 79; RESP 14; O2SAT 93
--- NOTE | 2024-09-05 08:09 | W.PM.PROC2 ---
Procedure Note - Detailed Date of Procedure 09/05/24 Pre-op Diagnosis sensory urge incont Post-op Diagnosis Same Procedure Performed Implantation of sacral lead 32[address] Placement of implantable pulse generator 14649 Complex neurostimulator programming impedance check 11667 Surgeon Yohan Edwards MD Anesthesia MAC and Local Indications This is a patient with refractory urge urinary incontinence. They have undergone a successful trial of sacral nerve stimulation. They present today for permanent implantation. They understand the risks of bleeding, infection, decreased efficacy, need for revision and battery changes. They agree to proceed Findings See dictated Description of Procedure They were correctly identified and informed consent was obtained. There brought to the operating room. There placed in the prone position. There given appropriate perioperative antibiotics. A time-out performed. I used fluoroscopy to jessica out my sacral landmarks in the AP and the lateral orientation. I anesthetized the skin. I entered the S3 foramen. I monitored the needle with fluoroscopy. I got appropriate Grady and toe response at a low threshold. I made a skin good. I placed a stylet. I placed the lead introducer sheath. I thinned placed and deployed to my lead. I got appropriate responses again at a low threshold. I marked out the site of the pulse generator. I anesthetized the skin and made that incision. I created a subcutaneous pocket to house the pulse generator. I tunneled the lead towards this pocket. Appropriate connections were made between the lead and the battery. It was placed in the pocket. It was programmed and impedances were checked and found to be normal. I irrigated out all wounds. I ensured hemostasis. I closed the subcutaneous tissues with 2 Vicryl. I closed the skin with 4 0 Vicryl. Glue was applied. There then awakened and transferred to the PACU in stable condition. Implants Sacral neurostimulator Estimated Blood Loss 5 Drains No Packing No Pathology None sent Condition Stable Disposition PACU
[2024-09-05 08:35] VITALS: BP 129/65; PULSE 59
[2024-09-05 09:05] VITALS: BP 136/62; PULSE 54
== END 2024-09-05 09:18 | disposition home or self-care (01) ==
PROVIDERS: Visit Provider Urology
PROC: (CPT 64561; principal; 2024-09-05 07:30)
DX: N39.41 Urge incontinence (principal)
CPT/HCPCS: 64561; 64590; 99199; C1767; C1778; C1787; J0690; J1100; J1885; J2004; J2250; J2405; J2704; J3010; J7120